=== PATIENT | male | born 1955 | race Caucasian/White ===

== ENCOUNTER 2021-09-05 19:19 | Emergency (ER) | payer BC, MEDICARE ==
[~2021-09-05] VITALS: Ht 170.2 cm; Wt 96.2 kg
[2021-09-05 21:53] VITALS: BP 157/94
--- NOTE | 2021-09-05 23:21 | NUR ---
Patient discharged to home in stable condition. Written and verbal after care instructions given. Patient verbalizes understanding of instruction. Pt is dispensed with crutches. pt was provided with pt teaching and return demonstrated.
== END 2021-09-05 23:29 | disposition home or self-care (01) ==
LOC: ER 19:22
DX: S93.401A Sprain of unspecified ligament of right ankle, initial encounter (principal); F17.200 Nicotine dependence, unspecified, uncomplicated; W10.9XXA Fall (on) (from) unspecified stairs and steps, initial encounter; Y93.89 Activity, other specified; Y92.89 Other specified places as the place of occurrence of the external cause; Y99.8 Other external cause status
CPT/HCPCS: 73610-TC